=== PATIENT | female | born 1985 | race Caucasian/White ===

== ENCOUNTER → 2016-12-30 | Emergency (ER) | payer SELFPAY ==
[~2016-12-30] MED LIST: ACETAMINOPHEN/CAFFEINE/BUTALBITAL 1 TAB ONE; ACETAMINOPHEN/CAFFEINE/BUTALBITAL 1 TAB PO ONE; MAGNESIUM CITRATE 300 ML BOTTLE ONE; MAGNESIUM CITRATE 300 ML BOTTLE PO ONE; ONDANSETRON 4 MG/2 ML VIAL IVPUSH ONE; ONDANSETRON 4 MG/2 ML VIAL ONE; SODIUM CHLORIDE 1,000 ML IV STA
[2016-12-30 19:54] VITALS: BP 118/82; PULSE 76; TEMP 98.1; BMI 31.6
[2016-12-30 21:07] LABS: URINE APPEARANCE CLEAR; URINE BILIRUBIN NEGATIVE (NEGATIVE); URINE BLOOD NEGATIVE (NEGATIVE); URINE COLOR LTYELLOW; URINE GLUCOSE (UA) NEGATIVE (NEGATIVE); URINE KETONE NEGATIVE (NEGATIVE); URINE NITRITE NEGATIVE (NEGATIVE); URINE PROTEIN NEGATIVE (NEGATIVE); URINE UROBILINOGEN 4.0 E.U/dl E.U./dl (0.2-1.0)
[2016-12-30 21:11] LABS: URINE LEUK ESTERASE TRACE (NEGATIVE)
[2016-12-30 21:13] LABS: URINE RBC 1 /hpf (0-3); URINE WBC 4 /hpf (3-5)
[2016-12-30 21:18] LABS: BASOPHIL 0.5 % (0-2.0); EOSINOPHIL 1.3 % (0-4.5); MCH 31.6 pg (25.7-33.7); MCHC 34.1 g/dl (32.0-36.0); MEAN CELL VOLUME 92.8 fl (80-96); MEAN PLT VOLUME 10.9 fl (7.5-11.1); NEUTROPHILS 67.8 % (42.8-82.8); PLATELET COUNT 252 K/MM3 (134-434); RDW 12.1 % (11.6-15.6); WHITE BLOOD COUNT 8.9 K/mm3 (4.0-10.0)
[2016-12-30 21:49] LABS: ALK PHOS 80 U/L (45-117); AMYLASE 44 U/L (25-115); ANION GAP 12 (8-16); BILIRUBIN,TOTAL 0.6 mg/dL (0.2-1.0); CALCIUM 9.1 mg/dL (8.5-10.1); CO2 28 mmol/L (21-32); CREATININE 0.9 mg/dL (0.55-1.02); GLUCOSE,RANDOM 86 mg/dL (74-106); SGOT/AST 16 U/L (15-37); SGPT/ALT 19 U/L (12-78); TOT PROT 7.8 g/dl (6.4-8.2)
--- NOTE | 2016-12-30 21:54 | PDOC ---
*Physical Exam - Vital Signs Last Vital Signs Temp Pulse Resp BP Pulse Ox 98.1 F 76 18 118/82 97 12/30/16 19:51 12/30/16 19:51 12/30/16 19:51 12/30/16 19:51 12/30/16 19:51 ED Treatment Course - LABORATORY CBC & Chemistry Diagram: 12/30/16 21:00 12/30/16 21:00 - ADDITIONAL ORDERS Additional order review: Laboratory Results 12/30/16 12/30/16 21:00 20:55 Sodium 139 Potassium 4.2 Chloride 99 Carbon Dioxide 28 Anion Gap 12 BUN 19 H D Creatinine 0.9 D Creat Clearance w eGFR > 60 Random Glucose 86 Calcium 9.1 Total Bilirubin 0.6 AST 16 ALT 19 Alkaline Phosphatase 80 Total Protein 7.8 Albumin 4.0 Total Amylase 44 Lipase 85 Urine Color Ltyellow Urine Appearance Clear Urine pH 6.0 Ur Specific [place] 1.018 Urine Protein Negative Urine Glucose (UA) Negative Urine Ketones Negative Urine Blood Negative Urine Nitrite Negative Urine Bilirubin Negative Urine Urobilinogen 4.0 e.u/dl H Ur Leukocyte Esterase Trace H Urine RBC 1 Urine WBC 4 Ur Epithelial Cells Rare Urine HCG, Qual Negative 12/30/16 21:00 RBC 4.76 MCV 92.8 MCHC 34.1 RDW 12.1 MPV 10.9 Neutrophils % 67.8 Lymphocytes % 21.9 D Monocytes % 8.5 Eosinophils % 1.3 Basophils % 0.5 - Medications Given in the ED: ED Medications Discontinued Medications Generic Name Dose Route Start Last Admin Trade Name Freq PRN Reason Stop Dose Admin Sodium Chloride 1,000 mls @ 1,000 mls/hr 12/30/16 20:25 12/30/16 21:38 Normal Saline - IV 12/30/16 21:24 1,000 mls/hr ASDIR STA Administration Ondansetron HCl 4 mg 12/30/16 20:25 12/30/16 21:39 Zofran Injection IVPUSH 12/30/16 20:26 4 mg ONCE ONE Administration Medical Decision Making - Medical Decision Making 12/30/16 21:54 Pt seen by the Advanced Practice Provider under my direct supervision HENRIK Castano Ancillary studies reviewed I agree with plan as outlined by the Advanced Practice Provider *DC/Admit/Observation/Transfer Diagnosis at time of Disposition: Headache, Abdominal pain - Prescriptions Prescriptions: Naproxen [Naprosyn -] 500 mg PO BID #20 tablet Oxycodone HCl/Acetaminophen [Percocet 5-325 mg Tablet] 1 tab PO Q6H PRN #20 tablet MDD 4 tab PRN Reason: Severe Pain - Referrals Referrals: Julio Bahena MD [Staff Physician] - - Patient Instructions Printed Discharge Instructions: DI for Vomiting -- Adult Additional Instructions: FOLLOW UP WITH DR. BAHENA OFFICE. CALL TO SCHEDULE APPOINTMENT. ALSO, FOLLOW UP WITH YOUR PRIMARY CARE PROVIDER NEEDED AT [address] [place] [address], DRINK ALCOHOL, OR OPERATE HEAVY MACHINERY WHILE TAKING PERCOCET. DRINK PLENTY WATER. Print Language: ZAMBIAN - Post Discharge Activity Work/School Note: Back to Work
--- NOTE | 2016-12-30 22:42 | PDOC ---
History of Present Illness - General Chief Complaint: Nausea/Vomiting Stated Complaint: PAIN Time Seen by Provider: 12/30/16 20:11 History Source: Patient Exam Limitations: No Limitations - History of Present Illness Travel History: No Initial Comments: 12/30/16 21:31 31yo Female patient presents to ED c/o h/a x 3 days w/ abd pain, and vomiting which began today. Patient states she usually gets h/a and has been taking Excedrin for migraines which help pain. However, patient reports not having a bowel movement x 1 week and usually has them every 2 days. She denies any other complaints at this time. LNMP: 3-. Past History - Travel Traveled outside of the country in the last 30 days: No Close contact w/someone who was outside of country & ill: No - Past Medical History Allergies/Adverse Reactions: Allergies Allergy/AdvReac Type Severity Reaction Status Date / Time montelukast sodium Allergy Verified 10/05/16 07:15 [From [facility]] Home Medications: Ambulatory Orders Albuterol Sulfate Inhaler - [Ventolin HFA Inhaler -] 1 - 2 inh PO Q4H PRN #1 inhaler 10/05/16 Prednisone [Deltasone -] 40 mg PO DAILY #8 tablet 10/05/16 Acetaminophen/Caffeine/Butalb [Fioricet -] 1 tab PO Q6H PRN #20 tablet MDD 4 tabs 12/31/16 Naproxen [Naprosyn -] 500 mg PO BID #20 tablet 12/31/16 Oxycodone HCl/Acetaminophen [Percocet 5-325 mg Tablet] 1 tab PO Q6H PRN #20 tablet MDD 4 tab 12/31/16 Asthma: Yes - Reproductive History (#): 4 Para: 1 Therapeutic (s) & number: Yes (1) Spontaneous : 1 - Immunization History Immunization Up to Date: Yes - Psycho/Social/Smoking Cessation Hx Anxiety: No Suicidal Ideation: No Smoking Status: No Smoking History: Never smoked Have you smoked in the past 12 months: No Number of Cigarettes Smoked Daily: 0 Cigars Per Day: 0 Information on smoking cessation initiated: No Hx Alcohol Use: No Drug/Substance Use Hx: No Substance Use Type: None Hx Substance Use Treatment: No Abd/GI Specific PMHX - Complaint Specific PMHX Colitis: No Diverticulitis: No Gall Bladder Disease: No GERD: No Hepatitis: No Irritable Bowel Synd (IBS): No Pancreatitis: No GI Ulcer Disease: No Review of Systems - Review of Systems Able to Perform ROS?: Yes Is the patient limited Northern Irish proficient: No Constitutional: No: Chills, Fever Respiratory: No: Stridor, Wheezing, Productive cough Cardiac (ROS): No: Chest Pain, Lightheadedness, Palpitations, Syncope, Chest Tightness ABD/GI: Yes: Constipated, Nausea, Vomiting, Other (Abdominal Pain-Generalized.) . No: Diarrhea, Poor Appetite, Poor Fluid Intake : No: Dysuria, Discharge, Flank Pain, Hematuria Musculoskeletal: No: Back Pain All Other Systems: Reviewed and Negative *Physical Exam - Vital Signs Last Vital Signs Temp Pulse Resp BP Pulse Ox 98.1 F 76 18 118/82 97 12/30/16 19:51 12/30/16 19:51 12/30/16 19:51 12/30/16 19:51 12/30/16 19:51 - Physical Exam General Appearance: Yes: Nourished, Appropriately Dressed, Mild Distress. No: Apparent Distress, Moderate Distress, Severe Distress HEENT: positive: EOMI, MICHAEL, Normal ENT Inspection, Normal Voice, Symmetrical, TMs Normal, Pharynx Normal Neck: positive: Trachea midline, Normal Thyroid, Supple. negative: Lymphadenopathy (R), Lymphadenopathy (L) Respiratory/Chest: positive: Lungs Clear, Normal Breath Sounds. negative: Respiratory Distress, Accessory Muscle Use, Labored Respiration, Rapid RR, Stridor, Wheezing Cardiovascular: positive: Regular Rhythm, Regular Rate, JVD. negative: Edema Gastrointestinal/Abdominal: positive: Normal Bowel Sounds, Soft, Tenderness ( Generalized abdominal). negative: Distended, Guarding, Rebound Musculoskeletal: positive: Normal Inspection. negative: CVA Tenderness Extremity: positive: Normal Capillary Refill, Normal Inspection, Normal Range of Motion Integumentary: positive: Normal Color, Dry, Warm Neurologic: positive: soccer commentator II-XII NML intact, Fully Oriented, Alert, Normal Mood/ Affect, Normal Response, Motor Strength 5/5 ED Treatment Course - LABORATORY CBC & Chemistry Diagram: 12/30/16 21:00 12/30/16 21:00 - ADDITIONAL ORDERS Additional order review: Laboratory Results 12/30/16 12/30/16 21:00 20:55 Sodium 139 Potassium 4.2 Chloride 99 Carbon Dioxide 28 Anion Gap 12 BUN 19 H D Creatinine 0.9 D Creat Clearance w eGFR > 60 Random Glucose 86 Calcium 9.1 Total Bilirubin 0.6 AST 16 ALT 19 Alkaline Phosphatase 80 Total Protein 7.8 Albumin 4.0 Total Amylase 44 Lipase 85 Urine Color Ltyellow Urine Appearance Clear Urine pH 6.0 Ur Specific [place] 1.018 Urine Protein Negative Urine Glucose (UA) Negative Urine Ketones Negative Urine Blood Negative Urine Nitrite Negative Urine Bilirubin Negative Urine Urobilinogen 4.0 e.u/dl H Ur Leukocyte Esterase Trace H Urine RBC 1 Urine WBC 4 Ur Epithelial Cells Rare Urine HCG, Qual Negative 12/30/16 21:00 RBC 4.76 MCV 92.8 MCHC 34.1 RDW 12.1 MPV 10.9 Neutrophils % 67.8 Lymphocytes % 21.9 D Monocytes % 8.5 Eosinophils % 1.3 Basophils % 0.5 - Medications Given in the ED: ED Medications Discontinued Medications Generic Name Dose Route Start Last Admin Trade Name Freq PRN Reason Stop Dose Admin Sodium Chloride 1,000 mls @ 1,000 mls/hr 12/30/16 20:25 12/30/16 21:38 Normal Saline - IV 12/30/16 21:24 1,000 mls/hr ASDIR STA Administration Ondansetron HCl 4 mg 12/30/16 20:25 12/30/16 21:39 Zofran Injection IVPUSH 12/30/16 20:26 4 mg ONCE ONE Administration *DC/Admit/Observation/Transfer Diagnosis at time of Disposition: Headache Qualifiers: Headache type: tension-type Headache chronicity pattern: episodic headache Intractability: not intractable Qualified Code(s): G44.219 - Episodic tension- type headache, not intractable Abdominal pain Qualifiers: Abdominal location: generalized Qualified Code(s): R10.84 - Generalized abdominal pain - Discharge Dispostion Disposition: HOME Condition at time of disposition: Improved Admit: No - Prescriptions Prescriptions: Naproxen [Naprosyn -] 500 mg PO BID #20 tablet Oxycodone HCl/Acetaminophen [Percocet 5-325 mg Tablet] 1 tab PO Q6H PRN #20 tablet MDD 4 tab PRN Reason: Severe Pain - Referrals Referrals: Julio Bahena MD [Staff Physician] - - Patient Instructions Printed Discharge Instructions: DI for Vomiting -- Adult Additional Instructions: FOLLOW UP WITH DR. BAHENA OFFICE. CALL TO SCHEDULE APPOINTMENT. ALSO, FOLLOW UP WITH YOUR PRIMARY CARE PROVIDER NEEDED AT [address] [place] [address]. [address], DRINK ALCOHOL, OR OPERATE HEAVY MACHINERY WHILE TAKING PERCOCET. DRINK PLENTY WATER. Print Language: KINYARWANDA - Post Discharge Activity Work/School Note: Back to Work
== END | disposition short-term general hospital (02) ==
LOC: JER 19:44
PROC: 3E033GC Introduction of Other Therapeutic Substance into Peripheral Vein, Percutaneous Approach (ICD-10-PCS; principal; 2016-12-30)
PROC: 3E0337Z Introduction of Electrolytic and Water Balance Substance into Peripheral Vein, Percutaneous Approach (ICD-10-PCS; 2016-12-30)
DX: G44.219 Episodic tension-type headache, not intractable (principal); R10.84 Generalized abdominal pain; J45.909 Unspecified asthma, uncomplicated
CPT/HCPCS: 36415; 74020-TC; 80053; 81003; 81015; 82150; 83690; 84703; 85025; 99282-25

== ENCOUNTER 2017-10-25 14:47 | Emergency (ER) | payer OTHER ==
[2017-10-25 15:01] VITALS: BP 126/75; PULSE 55; TEMP 98.7; BMI 33.3
[2017-10-25] MEDS ORDERED: KETOROLAC TROMETHAMINE 60 MG/2 ML VIAL IM ONE (17:09)
--- NOTE | 2017-10-25 18:18 | PDOC ---
History of Present Illness - General Chief Complaint: Head/Neck problem Stated Complaint: LT SIDE NUMBNESS PAIN Time Seen by Provider: 10/25/17 16:17 History Source: Patient Exam Limitations: No Limitations - History of Present Illness Initial Comments: 10/25/17 18:13 32-year-old female presents to the emergency room for evaluation of intermittent left neck pain radiating to her left shoulder and producing tingling to her left hand intermittently for the past 2 years. Patient states has seen her primary care doctor which diagnosed her with nerve pain but states pain is worsened over the past year and decided to seek treatment. Patient states pain is normally relieved with Tylenol Motrin and denies weakness, chest pain, headache, or dizziness. Occurred: reports: other Severity: reports: mild Pain Location: reports: back, neck Method of Injury: Yes: unknown Associated Symptoms (Fall): denies symptoms Past History - Travel Traveled outside of the country in the last 30 days: No - Past Medical History Allergies/Adverse Reactions: Allergies Allergy/AdvReac Type Severity Reaction Status Date / Time montelukast sodium Allergy Verified 10/25/17 15:01 [From [facility]] Home Medications: Ambulatory Orders NK [No Known Home Medication] 10/25/17 Asthma: Yes COPD: No - Reproductive History (#): 4 Para: 1 Therapeutic (s) & number: Yes (1) Spontaneous : 1 - Immunization History Immunization Up to Date: Yes - Suicide/Smoking/Psychosocial Hx Smoking Status: No Smoking History: Never smoked Have you smoked in the past 12 months: No Number of Cigarettes Smoked Daily: 0 Cigars Per Day: 0 Information on smoking cessation initiated: No Hx Alcohol Use: No Drug/Substance Use Hx: No Substance Use Type: None Hx Substance Use Treatment: No Patient Lives Alone: No Lives with/in: parents Trauma Specific PMHX - Complaint Specific PMHX Back Injury: No Neck Injury: No Review of Systems - Review of Systems Able to Perform ROS?: Yes Constitutional: No: Symptoms Reported HEENTM: No: Symptoms Reported Respiratory: No: Symptoms reported Cardiac (ROS): No: Symptoms Reported ABD/GI: No: Symptoms Reported : No: Symptoms Reported Musculoskeletal: Yes: Muscle Pain, Neck Pain Integumentary: No: Symptoms Reported Neurological: No: Symptoms reported Endocrine: No: Symptoms Reported Hematologic/Lymphatic: No: Symptoms Reported *Physical Exam - Vital Signs Last Vital Signs Temp Pulse Resp BP Pulse Ox 98.7 F 55 L 18 126/75 100 10/25/17 14:58 10/25/17 14:58 10/25/17 14:58 10/25/17 14:58 10/25/17 14:58 - Physical Exam General Appearance: Yes: Nourished, Appropriately Dressed. No: Apparent Distress Neck: positive: Tender (left trapezius), Normal Thyroid. negative: Supple, Decreased range of motion Respiratory/Chest: positive: Lungs Clear, Normal Breath Sounds. negative: Respiratory Distress, Accessory Muscle Use Cardiovascular: positive: Regular Rhythm, Regular Rate. negative: Murmur Musculoskeletal: positive: Muscle Spasm (left trapezius) ED Treatment Course - ADDITIONAL ORDERS Additional order review: Laboratory Results 10/25/17 17:05 Urine HCG, Qual Negative - RADIOLOGY Radiology Studies Ordered: Category Date Time Status SPINE-CERVICAL [RAD] Stat Radiology 10/25/17 17:09 Completed - Medications Given in the ED: ED Medications Discontinued Medications Generic Name Dose Route Start Last Admin Trade Name Freq PRN Reason Stop Dose Admin Ketorolac Tromethamine 60 mg 10/25/17 17:09 10/25/17 18:10 Toradol Injection - IM 10/25/17 17:10 60 mg ONCE ONE Administration Medical Decision Making - Medical Decision Making 10/25/17 18:20 Patient with left neck pain radiating to her left shoulder than left arm. Patient on exam appears, muscle spasm of the left trapezius. Patient did state posterior neck pain but not reproducible on exam. Patient was ordered for cervical spine x-ray an injection of Toradol. 10/25/17 18:22 X-ray of the cervical spine shows straightening of the cervical spine likely due to muscle spasm. Patient be discharged home with Percocet and told to follow -up with her primary care physician. *DC/Admit/Observation/Transfer Diagnosis at time of Disposition: Neck muscle spasm - Discharge Dispostion Disposition: HOME Condition at time of disposition: Good - Referrals - Patient Instructions Printed Discharge Instructions: DI for Back Spasm Additional Instructions: At this time your x-ray shows spasm of the neck which may be relieved with rest , ice and antispasmodic such as Percocet. I also do recommend follow-up with her primary care physician to discuss today's visit. - Post Discharge Activity
== END 2017-10-25 18:55 | disposition home or self-care (01) ==
LOC: JERFT 14:47
PROC: 3E0233Z Introduction of Anti-inflammatory into Muscle, Percutaneous Approach (ICD-10-PCS; principal; 2017-10-25)
DX: M62.838 Other muscle spasm (principal)
CPT/HCPCS: 72050-TC; 84703; 96372; 99281-25

== ENCOUNTER 2018-03-21 11:38 | Emergency (ER) | payer OTHER ==
[2018-03-21 11:43] VITALS: BP 147/85; PULSE 77; TEMP 98.2; BMI 33.6
--- NOTE | 2018-03-21 11:57 | PDOC ---
History of Present Illness - General History Source: Patient Exam Limitations: No Limitations - History of Present Illness Initial Comments: 03/21/18 12:25 The patient is a A3 32 year old female with a significant past medical history of ovarian cysts and asthma who presents to the emergency department for evaluation of right sided lower abdominal pain. The patient reports severe right sided lower abdominal pain since yesterday. The patient describes the pain as sharp, constant, radiating to the right back, and sporadically escalating to a 9/10 in severity. She reports associated symptoms of nausea, NBNB emesis, subjective fever, and cramping. The patient notes she this pain is similar to the pain she felt during her recent miscarriage. The patient's LMP was in January. The patient denies chest pain, shortness of breath, chills, diarrhea, constipation, vaginal bleeding, abnormal discharges, dysuria, frequency, urgency , and hematuria. Allergies: Montelukast sodium Past surgical history: Patient denies. Social history: No reported cigarette, alcohol, or drug use. <Elvi Beckham - Last Filed: 03/21/18 15:50> <Reinier Kincaid - Last Filed: 03/21/18 15:56> - General Chief Complaint: Pain Stated Complaint: ABD, BACK PAIN Time Seen by Provider: 03/21/18 11:52 Past History <Elvi Beckham - Last Filed: 03/21/18 15:50> - Past Medical History Asthma: Yes COPD: No - Reproductive History (#): 4 Para: 1 Therapeutic (s) & number: Yes (1) Spontaneous : 1 - Immunization History Immunization Up to Date: Yes - Suicide/Smoking/Psychosocial Hx Smoking Status: No Smoking History: Never smoked Have you smoked in the past 12 months: No Number of Cigarettes Smoked Daily: 0 Cigars Per Day: 0 Hx Alcohol Use: No Drug/Substance Use Hx: No Substance Use Type: None Hx Substance Use Treatment: No <Reinier Kincaid - Last Filed: 03/21/18 15:56> - Past Medical History Allergies/Adverse Reactions: Allergies Allergy/AdvReac Type Severity Reaction Status Date / Time montelukast sodium Allergy Verified 03/21/18 11:41 [From [facility]] Home Medications: Ambulatory Orders NK [No Known Home Medication] 03/21/18 Review of Systems - Review of Systems Constitutional: No: Chills, Fever Respiratory: No: Cough, Shortness of Breath Cardiac (ROS): No: Chest Pain ABD/GI: Yes: Nausea. No: Constipated, Diarrhea, Vomiting : Yes: See HPI. No: Dysuria, Frequency All Other Systems: Reviewed and Negative <Reinier Kincaid - Last Filed: 03/21/18 15:56> *Physical Exam - Vital Signs Last Vital Signs Temp Pulse Resp BP Pulse Ox 98.2 F 77 18 147/85 99 03/21/18 11:41 03/21/18 11:41 03/21/18 11:41 03/21/18 11:41 03/21/18 11:41 - Physical Exam Comments: GENERAL: The patient is awake, alert, and fully oriented, in no acute distress. HEAD: Normal with no signs of trauma. EYES: Pupils equal, round and reactive to light, extraocular movements intact, sclera anicteric, conjunctiva clear with no pallor. ENT: Ears normal, nares patent, oropharynx clear without exudates. Moist mucous membranes. NECK: Normal range of motion, supple without lymphadenopathy, JVD, or masses. LUNGS: Breath sounds equal, clear to auscultation bilaterally. No wheeze/ crackles. HEART: Regular rate and rhythm, normal S1 and S2 without murmur or rub. ABDOMEN: (+)Referred pain to right pelvis with diffuse palpation. (+)Tenderness on palpation to right pelvis, with no guarding. Soft, nondistended. MUSCULOSKELETAL: No CVA tenderness. EXTREMITIES: Normal range of motion, no edema. No clubbing or cyanosis. No cords, erythema, or tenderness. NEUROLOGICAL: Cranial nerves II through XII grossly intact. Normal speech, normal gait. PSYCH: Normal mood, normal affect. SKIN: Warm, Dry, normal turgor, no rashes or lesions noted. <Elvi Beckham - Last Filed: 03/21/18 15:50> - Vital Signs Last Vital Signs Temp Pulse Resp BP Pulse Ox 98.2 F 77 18 147/85 99 03/21/18 11:41 03/21/18 11:41 03/21/18 11:41 03/21/18 11:41 03/21/18 11:41 <Reinier Kincaid - Last Filed: 03/21/18 15:56> ED Treatment Course - LABORATORY CBC & Chemistry Diagram: 03/21/18 12:35 03/21/18 12:35 <Elvi Beckham - Last Filed: 03/21/18 15:50> - LABORATORY CBC & Chemistry Diagram: 03/21/18 12:35 03/21/18 12:35 <CodiReinier - Last Filed: 03/21/18 15:56> Medical Decision Making - Medical Decision Making 03/21/18 15:50 Transvaginal Ultrasound Impression: Bilateral ovarian follicles with no sonographic evidence of torsion. IUD in the lower uterine segment. <BhavaniElvi - Last Filed: 03/21/18 15:50> - Medical Decision Making 03/21/18 12:16 A portion of this note was documented by scribe services under my direction. I have reviewed the details of the note, within reason, and agree with the documentation with the following case summary and management plan written by me. 32-year-old female with history of first trimester miscarriage and two VTOP with LMP in January presents with gradual onset of right pelvic pain radiating to her right back since last night, waxing and waning in severity but otherwise constant, no associated vaginal discharge or bleeding. No urinary complaints, no GI complaints. Pain is similar to past miscarriage. Does not know if she is . Vital signs stable Seated in stretcher comfortably No jaundice or pallor Abdomen is soft and nondistended, tender without guarding or rebound in the right pelvis. No CVA tenderness. Bedside ultrasound per resident. 32-year-old female with right pelvic pain since last night, hemodynamically stable. Possible , rule out ectopic. 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 Stat bedside ultrasound to rule out ectopic Labs, urinalysis Reassess 03/21/18 13:57 labs normal, no leukocytosis. UA clear, urine negative. EVUS to evaluate for ovarian cyst/torsion. Reassess 03/21/18 15:54 Ultrasound shows no acute abnormalities. Patient is ambulating, hungry, and pain slightly improved. Repeat abdominal exam is soft/nontender/nondistended, there is no tenderness at McBurney's point and no CVA tenderness. No clinical suspicion for appendicitis, question whether this is early menstrual symptoms, not consistent with PID. We'll give Toradol for pain, agrees with discharge plan and [facility] [employer] follow-up, understands return criteria. <Reinier Kincaid - Last Filed: 03/21/18 15:56> *DC/Admit/Observation/Transfer - Attestations Scribe Attestion: Documentation prepared by Elvi Beckham, acting as medical file clerk for Reinier Kincaid MD. <Elvi Beckham - Last Filed: 03/21/18 15:50> <Reinier Kincaid - Last Filed: 03/21/18 15:56> Diagnosis at time of Disposition: Pelvic pain in female - Discharge Dispostion Disposition: HOME Condition at time of disposition: Improved - Referrals Referrals: Benji Hanks MD [Staff Physician] - - Patient Instructions Printed Discharge Instructions: DI for Pelvic Pain Additional Instructions: Activity as tolerated. Stay hydrated. Tylenol 1000 mg every 8 hours and/or ibuprofen 600 mg every 8 hours as needed for pain. Blood tests, a urine test, and an ultrasound showed no acute abnormalities. There is no evidence of infection at this time, and the symptoms might be due to early menstrual pains. Follow up with your primary doctor and [facility] [employer] as soon as possible regarding today's emergency department visit. Return to the emergency department for any new or concerning symptoms, particularly persistent or worsening pain, severe cramping or bleeding, fevers or chills, vomiting or diarrhea, difficulty urinating.
[2018-03-21 13:03] LABS: BASO % 0.5 % (0-2.0); EOS % 1.5 % (0-4.5); HEMOGLOBIN 14.2 GM/dL (10.7-15.3); LYMPH % 19.6 % (8-40); MCH 31.5 pg (25.7-33.7); MCHC 33.7 g/dl (32.0-36.0); MEAN CELL VOLUME 93.4 fl (80-96); MEAN PLT VOLUME 10.9 fl (7.5-11.1); MONO % 7.4 % (3.8-10.2); PLATELET COUNT 248 K/MM3 (134-434); RDW 12.6 % (11.6-15.6); WHITE BLOOD COUNT 7.1 K/mm3 (4.0-10.0)
[2018-03-21 13:16] LABS: URINE APPEARANCE CLEAR; URINE BILIRUBIN NEGATIVE (<2.0 mg/dL); URINE COLOR YELLOW; URINE GLUCOSE (UA) NEGATIVE (NEGATIVE); URINE KETONE NEGATIVE (NEGATIVE); URINE LEUK ESTERASE NEGATIVE (NEGATIVE); URINE NITRITE NEGATIVE (NEGATIVE); URINE PROTEIN NEGATIVE (NEGATIVE)
[2018-03-21 13:27] LABS: ALBUMIN 3.7 g/dl (3.4-5.0); ANION GAP 8 (8-16); BLOOD UREA NITROGEN 8 mg/dL (7-18); CALCIUM 8.9 mg/dL (8.5-10.1); CHLORIDE 106 mmol/L (98-107); CO2 26 mmol/L (21-32); GLUCOSE,RANDOM 86 mg/dL (74-106); LIPASE 83 U/L (73-393); SODIUM 140 mmol/L (136-145)
[2018-03-21 13:31] LABS: ALK PHOS 64 U/L (45-117); BILIRUBIN,TOTAL 0.3 mg/dL (0.2-1.0); CREATININE 0.6 mg/dL (0.55-1.02); SGOT/AST 13 U/L (15-37); SGPT/ALT 18 U/L (12-78); TOT PROT 7.2 g/dl (6.4-8.2)
[2018-03-21] MEDS ORDERED: KETOROLAC TROMETHAMINE 30 MG/1 ML VIAL IVPUSH ONE (15:46)
[2018-03-21] MEDS ORDERED: KETOROLAC TROMETHAMINE 60 MG/2 ML VIAL IM ONE (15:53)
[2018-03-21] MEDS ORDERED: KETOROLAC TROMETHAMINE 60 MG/2 ML VIAL ONE (16:00)
== END 2018-03-21 16:07 | disposition home or self-care (01) ==
LOC: JER 11:38
PROC: 3E0233Z Introduction of Anti-inflammatory into Muscle, Percutaneous Approach (ICD-10-PCS; principal; 2018-03-21)
DX: R10.2 Pelvic and perineal pain (principal); Z87.42 Personal history of other diseases of the female genital tract
CPT/HCPCS: 36415; 76830-TC; 80053; 81003; 83690; 84703; 85025; 96372; 99283-25

== ENCOUNTER 2018-08-05 14:07 | Emergency (ER) | payer SELFPAY ==
[2018-08-05 14:21] VITALS: BP 124/71; PULSE 72; TEMP 98.1; BMI 31.6
[2018-08-05] MEDS ORDERED: IBUPROFEN 400 MG TABLET (FP) PO ONE ×2 (14:38→14:44)
--- NOTE | 2018-08-05 14:43 | PDOC ---
History of Present Illness - General Chief Complaint: Ear Problem Stated Complaint: EAR PAIN Time Seen by Provider: 08/05/18 14:23 History Source: Patient - History of Present Illness Timing/Duration: reports: yesterday Associated Symptoms: reports: earache. denies: cough, facial pain, fever/chills , nasal congestion, nasal drainage Past History - Past Medical History Allergies/Adverse Reactions: Allergies Allergy/AdvReac Type Severity Reaction Status Date / Time montelukast sodium Allergy Verified 03/21/18 11:41 [From [facility]] Home Medications: Ambulatory Orders Amoxicillin - [Amoxicillin 875mg Tablet -] 875 mg PO BID #14 tab 08/05/18 Ciprofloxacin HCl/Dexameth [Ciprodex Otic Suspension] 4 drop BID #1 bottle Ibuprofen [Motrin -] 800 mg PO Q6H #30 tablet 08/05/18 Asthma: Yes COPD: No - Reproductive History (#): 4 Para: 1 Cervical CA: No Dysfunctional Uterine Bleeding: No Ectopic : No Endometrial CA: No Polycystic Ovaries: No Therapeutic (s) & number: Yes (1) Tubal Ligation: No Spontaneous : 1 - Immunization History Immunization Up to Date: Yes - Suicide/Smoking/Psychosocial Hx Smoking Status: No Smoking History: Never smoked Have you smoked in the past 12 months: No Number of Cigarettes Smoked Daily: 0 Cigars Per Day: 0 Hx Alcohol Use: No Drug/Substance Use Hx: No Substance Use Type: None Hx Substance Use Treatment: No Respiratory Specific PMHX - Complaint Specific PMHX Angina: No Bronchitis: No Pneumonia: No Pulmonary Embolus: No TB (Tuberculosis): No Review of Systems - Review of Systems Constitutional: No: Chills, Fever HEENTM: Yes: Ear Pain. No: Throat Pain Respiratory: No: Cough *Physical Exam - Vital Signs Last Vital Signs Temp Pulse Resp BP Pulse Ox 98.1 F 72 18 124/71 99 08/05/18 14:19 08/05/18 14:19 08/05/18 14:19 08/05/18 14:19 08/05/18 14:19 - Physical Exam General Appearance: Yes: Appropriately Dressed, Mild Distress HEENT: positive: Normal Voice, Other (L canal edema and purulent discharge, unable to see L TM, no swelling over mastoid). negative: Scleral Icterus (R), Scleral Icterus (L) Neck: positive: Supple. negative: Lymphadenopathy (R), Lymphadenopathy (L) Respiratory/Chest: negative: Respiratory Distress Integumentary: positive: Dry, Warm Neurologic: positive: Fully Oriented, Alert, Normal Mood/Affect Medical Decision Making - Medical Decision Making 08/05/18 14:44 33-year-old female, no significant history here with severe L ear pain since yesterday. No otorrhea, fever, chills, sore throat or cough. No recent trauma See exam Otitis externa -dc w/ ciprodex and amox -may need ear wick placed due to some canal swelling -ENT f/u given *DC/Admit/Observation/Transfer Diagnosis at time of Disposition: Otitis externa Qualifiers: Otitis externa type: unspecified type Chronicity: acute Laterality: left Qualified Code(s): H60.502 - Unspecified acute noninfective otitis externa, left ear - Discharge Dispostion Disposition: HOME Condition at time of disposition: Good - Prescriptions Prescriptions: Amoxicillin - [Amoxicillin 875mg Tablet -] 875 mg PO BID #14 tab Ciprofloxacin HCl/Dexameth [Ciprodex Otic Suspension] 4 drop BID #1 bottle Ibuprofen [Motrin -] 800 mg PO Q6H #30 tablet - Referrals Referrals: Jamison Florez [Primary Care Provider] - Chance Oliveira MD [Staff Physician] - - Patient Instructions Printed Discharge Instructions: DI for Otitis Externa Additional Instructions: Take medications as directed Please follow up with Dr Oliveira next week if symptoms are persistent or worsening as you may need an ear wick place in canal due to some swelling - Post Discharge Activity
== END 2018-08-05 14:56 | disposition home or self-care (01) ==
LOC: JERFT 14:07
DX: H60.502 Unspecified acute noninfective otitis externa, left ear (principal)
CPT/HCPCS: 99281-25

== ENCOUNTER 2018-12-19 08:06 | Emergency (ER) | payer OTHER ==
[2018-12-19 08:11] VITALS: BP 118/71; PULSE 93; TEMP 99.2; BMI 33.3
--- NOTE | 2018-12-19 08:19 | PDOC ---
History of Present Illness - General Chief Complaint: Migraine Headache Stated Complaint: MIRGAINES/LT EAR PAIN Time Seen by Provider: 12/19/18 08:17 History Source: Patient Exam Limitations: No Limitations - History of Present Illness Initial Comments: 12/19/18 08:50 The patient is a 33-year-old female past medical history of asthma, who presents to the ER with left ear pain for 2 days. Patient states that it hurts to touch the outside of her ear. She also admits to associated headaches. Denies fevers, chills, dizziness, lightheadedness, nausea and vomiting. Past History - Travel Traveled outside of the country in the last 30 days: No Close contact w/someone who was outside of country & ill: No - Past Medical History Allergies/Adverse Reactions: Allergies Allergy/AdvReac Type Severity Reaction Status Date / Time montelukast sodium Allergy Verified 03/21/18 11:41 [From [facility]] Home Medications: Ambulatory Orders Amoxicillin - [Amoxicillin 500mg Capsule -] 500 mg PO BID #14 capsule 12/19/18 Ofloxacin Otic [Floxin Otic -] 10 drop OT BID #200 drops 12/19/18 Asthma: Yes COPD: No - Reproductive History (#): 4 Para: 1 Cervical CA: No Dysfunctional Uterine Bleeding: No Ectopic : No Endometrial CA: No Polycystic Ovaries: No Therapeutic (s) & number: Yes (1) Tubal Ligation: No Spontaneous : 1 - Immunization History Immunization Up to Date: Yes - Suicide/Smoking/Psychosocial Hx Smoking Status: No Smoking History: Never smoked Have you smoked in the past 12 months: No Number of Cigarettes Smoked Daily: 0 Cigars Per Day: 0 Hx Alcohol Use: No Drug/Substance Use Hx: No Substance Use Type: None Hx Substance Use Treatment: No Review of Systems - Review of Systems Able to Perform ROS?: Yes Comments:: 12/19/18 08:18 CONSTITUTIONAL: Absent: fever, chills, diaphoresis, generalized weakness, malaise, loss of appetite HEENT: Present: L ear pain Absent: rhinorrhea, nasal congestion, throat pain, throat swelling, difficulty swallowing, mouth swelling, ear pain, eye pain, visual Changes CARDIOVASCULAR: Absent: chest pain, loss of consciousness, palpitations, irregular heart rate, peripheral edema RESPIRATORY: Absent: cough, shortness of breath, dyspnea with exertion, orthopnea, wheezing, stridor, hemoptysis GASTROINTESTINAL: Absent: abdominal pain, abdominal distension, nausea, vomiting, diarrhea, constipation, melena, hematochezia GENITOURINARY: Absent: dysuria, frequency, urgency, hesitancy, hematuria, flank pain, genital pain MUSCULOSKELETAL: Absent: myalgia, arthralgia, joint swelling SKIN: Absent: rash, itching, pallor HEMATOLOGIC/IMMUNOLOGIC: Absent: easy bleeding, easy bruising, lymphadenopathy, frequent infections ENDOCRINE: Absent: unexplained weight gain, unexplained weight loss, heat intolerance, cold intolerance NEUROLOGIC: Present: headache Absent: headache, focal weakness or paresthesias, dizziness, unsteady gait, seizure, mental status changes, bladder or bowel incontinence PSYCHIATRIC: Absent: anxiety, depression, suicidal or homicidal ideation, hallucinations. Is the patient limited Khmer proficient: No *Physical Exam - Vital Signs Last Vital Signs Temp Pulse Resp BP Pulse Ox 99.2 F 93 H 16 118/71 100 12/19/18 08:10 12/19/18 08:10 12/19/18 08:10 12/19/18 08:10 12/19/18 08:10 - Physical Exam Comments: 12/19/18 08:19 GENERAL: Well developed, well nourished. Awake and alert. No acute distress. HEENT: Normocephalic, atraumatic. PERRLA, EOMI. No conjunctival pallor. Sclera are non- icteric. Moist mucous membranes. Oropharynx is clear. L ear canal mildly edematous. No otorrhea. (+) TTP of the L tragus and L pinna. L TM appears clear. R TM and ear canal are normal. NECK: Supple. Full ROM. No JVD. Carotid pulses 2+ and symmetric, without bruits. No thyromegaly. No lymphadenopathy. CARDIOVASCULAR: Regular rate and rhythm. No murmurs, rubs, or gallops. Distal pulses are 2+ and symmetric. PULMONARY: No evidence of respiratory distress. Lungs clear to auscultation bilaterally. No wheezing, rales or rhonchi. ABDOMINAL: Soft. Non-tender. Non-distended. No rebound or guarding. No organomegaly. Normoactive bowel sounds. MUSCULOSKELETAL Normal range of motion at all joints. No bony deformities or tenderness. No CVA tenderness. EXTREMITIES: No cyanosis. No clubbing. No edema. No calf tenderness. SKIN: Warm and dry. Normal capillary refill. No rashes. No jaundice. NEUROLOGICAL: Alert, awake, appropriate. Cranial nerves 2-12 intact. No deficits to light touch and temperature in face, upper extremities and lower extremities. No motor deficits in the in face, upper extremities and lower extremities. Normoreflexic in the upper and lower extremities. Normal speech. Toes are down- going bilaterally. Gait is normal without ataxia. PSYCHIATRIC: Cooperative. Good eye contact. Appropriate mood and affect. 12/19/18 08:50 Moderate Sedation - Procedure Monitoring Vital Signs: Procedure Monitoring Vital Signs Temperature 99.2 F 12/19/18 08:10 Pulse Rate 93 H 12/19/18 08:10 Respiratory Rate 16 12/19/18 08:10 Blood Pressure 118/71 12/19/18 08:10 O2 Sat by Pulse Oximetry (%) 100 12/19/18 08:10 Medical Decision Making - Medical Decision Making 12/19/18 08:53 Pt is a 33 y/o F who presents to the ED for two days of ear pain and headache Most likely otitis externa given pain to tragus and pinna No ttp of the mastoid Motrin given for pain control DC home with ear drops and amoxicillin ENT follow up given I discussed the physical exam findings, ancillary test results and final diagnoses with the patient. I answered all of the patient's questions. The patient was satisfied with the care received and felt comfortable with the discharge plan and treatment plan. The Patient agrees to follow up with the primary care physician/specialist within 24-72 hours. Return precautions were given. *DC/Admit/Observation/Transfer Diagnosis at time of Disposition: Otitis externa Qualifiers: Otitis externa type: unspecified type Chronicity: acute Laterality: left Qualified Code(s): H60.502 - Unspecified acute noninfective otitis externa, left ear - Discharge Dispostion Disposition: HOME Condition at time of disposition: Stable Decision to Admit order: No - Referrals Referrals: Jamison Florez [Primary Care Provider] - - Patient Instructions Printed Discharge Instructions: DI for Otitis Externa Additional Instructions: You have otitis externa. This is an infection of the ear canal. Please use the eardrops once a day as directed for the next 10 days to the affected ear. Please take the amoxicillin twice a day for 10 days. Do not put anything in the ear, including q-tips. Keep the ear dry. Do not go swimming for the next 2 weeks. Pat the ear dry with a towel after showering. Follow up with ENT if your symptoms are not improving in 7-10 days Return to the ED if you have worsening pain, fevers, dizziness or if you have any changes in your symptoms. ENT: Dr. Pat Ennis [address] [address] - Post Discharge Activity Forms/Work/School Notes: Back to Work
[2018-12-19] MEDS ORDERED: IBUPROFEN 400 MG TABLET (FP) PO ONE ×2 (08:46→08:48)
== END 2018-12-19 09:15 | disposition home or self-care (01) ==
LOC: JERFT 08:06
DX: H60.502 Unspecified acute noninfective otitis externa, left ear (principal)
CPT/HCPCS: 99281-25

== ENCOUNTER 2019-01-24 18:14 | Emergency (ER) | payer OTHER ==
[2019-01-24 18:20] VITALS: BP 130/83; BMI 34.9
--- NOTE | 2019-01-24 18:21 | PDOC ---
Rapid Medical Evaluation Time Seen by Provider: 01/24/19 18:16 Medical Evaluation: Allergies Allergy/AdvReac Type Severity Reaction Status Date / Time montelukast sodium Allergy Verified 03/21/18 11:41 [From [facility]] 01/24/19 18:16 I have performed a brief in-person evaluation of this patient. The patient presents with a chief complaint of: left temporal pain with sore throat Pertinent physical exam findings: uvula midline. No sublingual swelling. + trismus I have ordered the following: labs, rapid strep, urine The patient will proceed to the ED for further evaluation. Discharge Disposition - Diagnosis Headache - Referrals - Patient Instructions - Post Discharge Activity
[2019-01-24] MEDS ORDERED: KETOROLAC TROMETHAMINE 30 MG/1 ML VIAL IVPUSH ONE (18:57)
[2019-01-24] MEDS ORDERED: NEOMYCIN/POLYMYXN/HC OTIC SOLUTION 10 ML BOTTLE ONE (18:58)
[2019-01-24] MEDS ORDERED: KETOROLAC TROMETHAMINE 30 MG/1 ML VIAL ONE (18:59)
[2019-01-24] MEDS ORDERED: NEOMYCIN/POLYMYXN/HC OTIC SUSPENSION 10 ML BOTTLE AS ONE (19:17)
--- NOTE | 2019-01-24 19:23 | PDOC ---
History of Present Illness - General Chief Complaint: Headache Stated Complaint: PAIN ON LEFT SIDE OF FACE, itchy throat Time Seen by Provider: 01/24/19 18:16 History Source: Patient Exam Limitations: No Limitations - History of Present Illness Initial Comments: 01/24/19 19:21 Patient came to emergency department with complaints of severe left ear and facial pain. has suffered with same in the past approximately one month ago. Was seen here and treated with Cortisporin otic drops and a course of antibiotics with some resolved. Was seen by ENT who cleared her for any significant tympanic or canal issue. had a recurrence of pain 2 days ago but is progressively worsened to where she has exquisite pain to her left face/ ear without resolved with Excedrin. had drainage yesterday but none today from the same air. Severity: Yes: moderate, severe Associated Symptoms: reports: fever/chills, ringing in ears Past History - Travel Traveled outside of the country in the last 30 days: No Close contact w/someone who was outside of country & ill: No - Past Medical History Allergies/Adverse Reactions: Allergies Allergy/AdvReac Type Severity Reaction Status Date / Time montelukast sodium Allergy Verified 01/24/19 18:20 [From [facility]] Home Medications: Ambulatory Orders Clindamycin [Cleocin -] 300 mg PO TID #21 capsule 01/25/19 Ibuprofen 600 mg PO Q6H #30 tablet 01/25/19 Neomycin/Polymyxn/Hc [Cortisporin Otic Solution -] 5 drop Q6HPO #1 bottle Asthma: Yes COPD: No - Reproductive History (#): 4 Para: 1 Cervical CA: No Dysfunctional Uterine Bleeding: No Ectopic : No Endometrial CA: No Polycystic Ovaries: No Therapeutic (s) & number: Yes (1) Tubal Ligation: No Spontaneous : 1 - Immunization History Immunization Up to Date: Yes - Suicide/Smoking/Psychosocial Hx Smoking Status: No Smoking History: Never smoked Have you smoked in the past 12 months: No Number of Cigarettes Smoked Daily: 0 Cigars Per Day: 0 Information on smoking cessation initiated: No Hx Alcohol Use: No Drug/Substance Use Hx: No Substance Use Type: None Hx Substance Use Treatment: No Review of Systems - Review of Systems Able to Perform ROS?: Yes Is the patient limited Kazakh proficient: Yes Constitutional: Yes: Symptoms Reported, See HPI, Chills, Malaise. No: Fever HEENTM: Yes: Symptoms Reported, See HPI Respiratory: No: Symptoms reported Neurological: Yes: Symptoms reported, See HPI, Headache All Other Systems: Reviewed and Negative *Physical Exam - Vital Signs Last Vital Signs Temp Pulse Resp BP Pulse Ox 98.7 F 93 H 18 130/83 98 01/24/19 18:17 01/24/19 18:17 01/24/19 18:17 01/24/19 18:17 01/24/19 18:17 - Physical Exam General Appearance: Yes: Nourished, Appropriately Dressed, Apparent Distress, Severe Distress HEENT: positive: MICHAEL, Pharynx Normal, Nasal Congestion, Rhinorrhea, Hearing Decreased. negative: Normal ENT Inspection, TMs Normal (patient with exquisite tenderness on light touch to left or call, tragus, and mastoid bone. Has no erythema, no fluctuance however is exquisitely painful/reproduces tears. Swollen and erythematous left canal and unable to visualize TM due to the swelling. Has no obvious purulent drainage in canal. Right TM intact, clear and structures easily), Pharyngeal Erythema, Tonsillar Exudate, TM Bulging Neck: positive: Supple, Lymphadenopathy (R), Lymphadenopathy (L) Respiratory/Chest: positive: Lungs Clear, Normal Breath Sounds Musculoskeletal: positive: Normal Inspection Extremity: positive: Normal Capillary Refill, Normal Inspection, Normal Range of Motion Integumentary: positive: Dry, Warm, Pale Neurologic: positive: rf microwave engineer II-XII NML intact, Fully Oriented, Alert, Normal Mood/ Affect, Normal Response, Motor Strength 02/04 ED Treatment Course - LABORATORY CBC & Chemistry Diagram: 01/24/19 19:28 01/24/19 19:28 - RADIOLOGY Radiology Studies Ordered: Category Date Time Status HEAD CT WITHOUT CONTRAST [CT] Stat CT Scan 01/24/19 19:[address] W/O CONTRAST [CT] Stat CT Scan 01/24/19 19:16 Ordered - Medications Given in the ED: ED Medications Discontinued Medications Generic Name Dose Route Start Last Admin Trade Name Freq PRN Reason Stop Dose Admin Ketorolac Tromethamine 30 mg 01/24/19 18:57 01/24/19 19:10 Toradol Injection - IVPUSH 01/24/19 18:58 30 mg ONCE ONE Administration Medical Decision Making - Medical Decision Making 01/24/19 19:38 Patient states year pain is much relieved after 30 mg of IV Toradol. Instilled Cortisporin otic solution. Pending urine UCG we will sent for CAT scan of the temporal bones and head to rule out mastoiditis or other pathology. TIFFANY Husain given turnover for patient who she will receive pending results of CT scan *DC/Admit/Observation/Transfer Diagnosis at time of Disposition: Otitis externa Qualifiers: Otitis externa type: unspecified type Chronicity: acute Laterality: left Qualified Code(s): H60.502 - Unspecified acute noninfective otitis externa, left ear Otitis media Qualifiers: Otitis media type: unspecified Chronicity: acute Qualified Code(s): H66.90 - Otitis media, unspecified, unspecified ear - Discharge Dispostion Disposition: HOME Condition at time of disposition: Stable - Prescriptions Prescriptions: Clindamycin [Cleocin -] 300 mg PO TID #21 capsule Ibuprofen 600 mg PO Q6H #30 tablet Neomycin/Polymyxn/Hc [Cortisporin Otic Solution -] 5 drop Q6HPO #1 bottle - Referrals Referrals: Jamison Florez [Primary Care Provider] - - Patient Instructions Printed Discharge Instructions: DI for Otitis Externa, DI for Otitis Media ( Middle Ear Infection)-Child Additional Instructions: You were evaluated for your ear pain today. Please take the antibiotics and use the eardrops as directed. You may take Motrin 600 mL every 6 hours as needed for pain not to exceed 3000 mg a day. Please follow up with ENT as scheduled. Return to the ER for worsening pain, headache, nausea, dizziness or if you have any changes in your symptoms. - Post Discharge Activity Forms/Work/School Notes: Back to Work
[2019-01-24 19:36] LABS: HCG,QUALITATIVE URINE Negative
[2019-01-24 19:37] LABS: EPI CELLS 6.1 /HPF (0-5/HPF); URINE APPEARANCE CLEAR; URINE BACTERIA 338.6 /hpf (NEGATIVE); URINE BILIRUBIN NEGATIVE (NEGATIVE); URINE CASTS 1 /lpf (0-8); URINE COLOR YELLOW; URINE GLUCOSE (UA) NEGATIVE (NEGATIVE); URINE KETONE NEGATIVE (NEGATIVE); URINE LEUK ESTERASE 1+ (NEGATIVE); URINE NITRITE NEGATIVE (NEGATIVE); URINE PROTEIN NEGATIVE (NEGATIVE); URINE WBC 6 /hpf (0-5)
[2019-01-24 19:42] LABS: BASO % 0.5 % (0-2.0); EOS % 1.4 % (0-4.5); HEMATOCRIT 41.8 % (32.4-45.2); HEMOGLOBIN 14.1 GM/dL (10.7-15.3); LYMPH % 18.2 % (8-40); MCH 32.3 pg (25.7-33.7); MCHC 33.9 g/dl (32.0-36.0); MEAN CELL VOLUME 95.3 fl (80-96); MEAN PLT VOLUME 10.7 fl (7.5-11.1); MONO % 8.2 % (3.8-10.2); NEUT % 71.7 % (42.8-82.8); PLATELET COUNT 275 K/MM3 (134-434); RBC 4.38 M/mm3 (3.60-5.2); RDW 12.6 % (11.6-15.6); WHITE BLOOD COUNT 11.3 K/mm3 (4.0-10.0)
[2019-01-24 20:00] LABS: URINE RBC 11.6 /hpf (0-4)
[2019-01-24 20:32] LABS: ERYTHROCYTE SEDIMENTATION RATE 55 mm/hr (0-20)
[2019-01-24 21:18] LABS: ALBUMIN 2.6 g/dl (3.4-5.0); ALK PHOS 64 U/L (45-117); ANION GAP 13 MMOL/L (8-16); BILIRUBIN,TOTAL 0.6 mg/dL (0.2-1); BLOOD UREA NITROGEN 15 mg/dL (7-18); CHLORIDE 105 mmol/L (98-107); CO2 22 mmol/L (21-32); CREATININE 0.8 mg/dL (0.55-1.3); GLUCOSE,RANDOM 70 mg/dL (74-106); POTASSIUM 5.2 mmol/L (3.5-5.1); SGOT/AST 33 U/L (15-37); SGPT/ALT 18 U/L (13-61); SODIUM 140 mmol/L (136-145); TOT PROT 7.7 g/dl (6.4-8.2)
--- NOTE | 2019-01-24 22:16 | PDOC ---
*Physical Exam - Vital Signs Last Vital Signs Temp Pulse Resp BP Pulse Ox 98.7 F 93 H 18 130/83 98 01/24/19 18:17 01/24/19 18:17 01/24/19 18:17 01/24/19 18:17 01/24/19 18:17 - Physical Exam General Appearance: Yes: Nourished, Appropriately Dressed. No: Apparent Distress ED Treatment Course - LABORATORY CBC & Chemistry Diagram: 01/24/19 19:28 01/24/19 19:28 - ADDITIONAL ORDERS Additional order review: Laboratory Results 01/24/19 01/24/19 19:28 18:46 Sodium 140 Potassium 5.2 H Chloride 105 Carbon Dioxide 22 Anion Gap 13 BUN 15 Creatinine 0.8 Creat Clearance w eGFR 83.66 Random Glucose 70 L Calcium 9.0 Total Bilirubin 0.6 AST 33 ALT 18 Alkaline Phosphatase 64 Total Protein 7.7 Albumin 2.6 L Urine Color Yellow Urine Appearance Clear Urine pH 7.0 Ur Specific [place] 1.018 Urine Protein Negative Urine Glucose (UA) Negative Urine Ketones Negative Urine Blood Negative Urine Nitrite Negative Urine Bilirubin Negative Urine Urobilinogen 1.0 Ur Leukocyte Esterase 1+ H Urine WBC (Auto) 6 Urine RBC (Auto) 11.6 Urine Casts (Auto) 1 U Epithel Cells (Auto) 6.1 Urine Bacteria (Auto) 338.6 Urine HCG, Qual Negative 01/24/19 19:28 RBC 4.38 MCV 95.3 MCHC 33.9 RDW 12.6 MPV 10.7 Neutrophils % 71.7 Lymphocytes % 18.2 Monocytes % 8.2 Eosinophils % 1.4 Basophils % 0.5 - Medications Given in the ED: ED Medications Discontinued Medications Generic Name Dose Route Start Last Admin Trade Name Freq PRN Reason Stop Dose Admin Ketorolac Tromethamine 30 mg 01/24/19 18:57 01/24/19 19:10 Toradol Injection - IVPUSH 01/24/19 18:58 30 mg ONCE ONE Administration Neomycin/Polymyxin/Hydrocortisone 5 drop 01/24/19 19:17 01/24/19 19:51 Cortisporin Otic Suspenstion - 01/24/19 19:18 5 drop ONCE ONE Administration Medical Decision Making - Medical Decision Making 01/24/19 22:13 Pt transferred from fast track for r/o mastoiditis. Pt just returned from head CT/temporal bones CT comport oral bones, head No CT evidence of acute intracranial pathology. Findings are seen consistent with left-sided otitis externa and left-sided otitis media as discussed. There is also a small amount of fluid within the left mastoid air cells. Paranasal sinus disease as noted above No inflammation around the mastoid bones. No erosion this. Tympanic annulus Suspect otitis media/externa at this time. We'll discharge on clindamycin as patient had amoxicillin last month Discharge home with ENT follow-up. Patient received 1 dose of IV clindamycin prior discharge. I discussed the physical exam findings, ancillary test results and final diagnoses with the patient. I answered all of the patient's questions. The patient was satisfied with the care received and felt comfortable with the discharge plan and treatment plan. The Patient agrees to follow up with the primary care physician/specialist within 24-72 hours. Return precautions were given. *DC/Admit/Observation/Transfer Diagnosis at time of Disposition: Otitis externa Qualifiers: Otitis externa type: unspecified type Chronicity: acute Laterality: left Qualified Code(s): H60.502 - Unspecified acute noninfective otitis externa, left ear Otitis media Qualifiers: Otitis media type: suppurative Chronicity: acute Laterality: left Recurrence: recurrent Spontaneous tympanic membrane rupture: without spontaneous rupture Qualified Code(s): H66.005 - Acute suppurative otitis media without spontaneous rupture of ear drum, recurrent, left ear - Discharge Dispostion Disposition: HOME Condition at time of disposition: Stable Decision to Admit order: No - Prescriptions Prescriptions: Clindamycin [Cleocin -] 300 mg PO TID #21 capsule Ibuprofen 600 mg PO Q6H #30 tablet Neomycin/Polymyxn/Hc [Cortisporin Otic Solution -] 5 drop Q6HPO #1 bottle - Referrals Referrals: Jamison Florez [Primary Care Provider] - - Patient Instructions Printed Discharge Instructions: DI for Otitis Externa, DI for Otitis Media ( Middle Ear Infection)-Child Additional Instructions: You were evaluated for your ear pain today. Please take the antibiotics and use the eardrops as directed. You may take Motrin 600 mL every 6 hours as needed for pain not to exceed 3000 mg a day. Please follow up with ENT as scheduled. Return to the ER for worsening pain, headache, nausea, dizziness or if you have any changes in your symptoms. - Post Discharge Activity Forms/Work/School Notes: Back to Work
--- NOTE | 2019-01-24 22:17 | PDOC ---
*Physical Exam - Vital Signs Last Vital Signs Temp Pulse Resp BP Pulse Ox 98.7 F 93 H 18 130/83 98 01/24/19 18:17 01/24/19 18:17 01/24/19 18:17 01/24/19 18:17 01/24/19 18:17 ED Treatment Course - LABORATORY CBC & Chemistry Diagram: 01/24/19 19:28 01/24/19 19:28 - ADDITIONAL ORDERS Additional order review: Laboratory Results 01/24/19 01/24/19 19:28 18:46 Sodium 140 Potassium 5.2 H Chloride 105 Carbon Dioxide 22 Anion Gap 13 BUN 15 Creatinine 0.8 Creat Clearance w eGFR 83.66 Random Glucose 70 L Calcium 9.0 Total Bilirubin 0.6 AST 33 ALT 18 Alkaline Phosphatase 64 Total Protein 7.7 Albumin 2.6 L Urine Color Yellow Urine Appearance Clear Urine pH 7.0 Ur Specific [place] 1.018 Urine Protein Negative Urine Glucose (UA) Negative Urine Ketones Negative Urine Blood Negative Urine Nitrite Negative Urine Bilirubin Negative Urine Urobilinogen 1.0 Ur Leukocyte Esterase 1+ H Urine WBC (Auto) 6 Urine RBC (Auto) 11.6 Urine Casts (Auto) 1 U Epithel Cells (Auto) 6.1 Urine Bacteria (Auto) 338.6 Urine HCG, Qual Negative 01/24/19 19:28 RBC 4.38 MCV 95.3 MCHC 33.9 RDW 12.6 MPV 10.7 Neutrophils % 71.7 Lymphocytes % 18.2 Monocytes % 8.2 Eosinophils % 1.4 Basophils % 0.5 - Medications Given in the ED: ED Medications Discontinued Medications Generic Name Dose Route Start Last Admin Trade Name Arthurq PRN Reason Stop Dose Admin Ketorolac Tromethamine 30 mg 01/24/19 18:57 01/24/19 19:10 Toradol Injection - IVPUSH 01/24/19 18:58 30 mg ONCE ONE Administration Neomycin/Polymyxin/Hydrocortisone 5 drop 01/24/19 19:17 01/24/19 19:51 Cortisporin Otic Suspenstion - 01/24/19 19:18 5 drop ONCE ONE Administration Medical Decision Making - Medical Decision Making 01/24/19 22:17 Patient seen by the advanced practice provider under my direct supervision. Ancillary testing reviewed as necessary. I agree with plan as outlined by the advanced practice provider. *DC/Admit/Observation/Transfer Diagnosis at time of Disposition: Otitis externa - Referrals Referrals: Jamison Florez [Primary Care Provider] - - Patient Instructions - Post Discharge Activity
[2019-01-24 22:21] VITALS: PULSE 72; TEMP 98
[2019-01-24] MEDS ORDERED: CLINDAMYCIN 600MG PREMIX IVPB 600 MG/50 ML BAG IVPB ONE (22:54)
[2019-01-25] MEDS ORDERED: CLINDAMYCIN 600MG PREMIX IVPB 600 MG/50 ML BAG IVPB ONE (00:05)
[2019-01-25] MEDS ORDERED: traMADol HCL 50 MG TABLET PO ONE (00:41)
[2019-01-25] MEDS ORDERED: traMADol HCL 50 MG TABLET ONE (01:01)
== END 2019-01-25 01:17 | disposition home or self-care (01) ==
LOC: JERFT 18:14 → JER 18:14
PROC: 3E0333Z Introduction of Anti-inflammatory into Peripheral Vein, Percutaneous Approach (ICD-10-PCS; principal; 2019-01-24)
DX: H60.502 Unspecified acute noninfective otitis externa, left ear (principal); H66.005 Acute suppurative otitis media without spontaneous rupture of ear drum, recurrent, left ear
CPT/HCPCS: 36415; 70450-TC; 70480-TC; 80053; 81003; 84703; 85025; 85651; 87070; 87880; 99283-25

== ENCOUNTER 2019-01-26 06:08 | Emergency (ER) | payer SELFPAY ==
[2019-01-26 06:41] VITALS: BP 133/72; PULSE 73; TEMP 98.4; BMI 33.3
[2019-01-26] MEDS ORDERED: AMPICILLIN NA/SULBACTAM NA 3 GM in SODIUM CHLORIDE 100 ML IVPB ONE (07:54)
[2019-01-26] MEDS ORDERED: VANCOMYCIN 1 GM in D5W (PRE-DOCKED) 1,000 MG/250 ML IVPB ONE (07:54)
--- NOTE | 2019-01-26 08:17 | PDOC ---
History of Present Illness - General Chief Complaint: Ear Problem Stated Complaint: EARACHE Time Seen by Provider: 01/26/19 07:26 History Source: Patient Exam Limitations: No Limitations - History of Present Illness Initial Comments: 01/26/19 08:11 33-year-old female with no past medical history presents to ED with worsening left ear pain now radiating to her right ear without fever, chills dizziness or visual changes. Patient also denies any difficult swallowing but states discomfort to the back of her throat. Patient states was seen here 2 days prior given antibiotics along with eardrops and Motrin. Patient states symptoms have worsened now causing inability to hear from her left ear. Patient denies decreased sensation to the left side of her face, dizziness or posterior neck pain. Patient denies smoking history, recent travel, or submersion in water recently. Timing/Duration: getting worse Severity: mild Associated Symptoms: reports: other Past History - Travel Traveled outside of the country in the last 30 days: No Close contact w/someone who was outside of country & ill: No - Past Medical History Allergies/Adverse Reactions: Allergies Allergy/AdvReac Type Severity Reaction Status Date / Time montelukast sodium Allergy Verified 01/24/19 18:20 [[facility] Home Medications: Ambulatory Orders Clindamycin [Cleocin -] 300 mg PO TID #21 capsule 01/25/19 Ibuprofen 600 mg PO Q6H #30 tablet 01/25/19 Neomycin/Polymyxn/Hc [Cortisporin Otic Solution -] 5 drop Q6HPO #1 bottle Asthma: Yes COPD: No - Reproductive History LMP Normal: Yes (#): 4 Para: 1 Cervical CA: No Dysfunctional Uterine Bleeding: No Ectopic : No Endometrial CA: No Polycystic Ovaries: No Therapeutic (s) & number: Yes (1) Tubal Ligation: No Spontaneous : 1 - Immunization History Immunization Up to Date: Yes - Suicide/Smoking/Psychosocial Hx Smoking Status: No Smoking History: Never smoked Have you smoked in the past 12 months: No Number of Cigarettes Smoked Daily: 0 Cigars Per Day: 0 Hx Alcohol Use: No Drug/Substance Use Hx: No Substance Use Type: None Hx Substance Use Treatment: No Patient Lives Alone: No Lives with/in: spouse/SO Review of Systems - Review of Systems Able to Perform ROS?: Yes Is the patient limited Setswana proficient: No Constitutional: No: Symptoms Reported HEENTM: Yes: Symptoms Reported, Ear Pain Respiratory: No: Symptoms reported Cardiac (ROS): No: Symptoms Reported ABD/GI: No: Symptoms Reported : No: Symptoms Reported Musculoskeletal: No: Symptoms Reported Integumentary: Yes: Erythema Neurological: No: Headache, Numbness, Tingling, Dizziness Endocrine: No: Symptoms Reported *Physical Exam - Vital Signs Last Vital Signs Temp Pulse Resp BP Pulse Ox 98.4 F 73 20 133/72 99 01/26/19 06:38 01/26/19 06:38 01/26/19 06:38 01/26/19 06:38 01/26/19 06:38 - Physical Exam General Appearance: Yes: Nourished, Appropriately Dressed. No: Apparent Distress HEENT: positive: EOMI, MICHAEL, Pharynx Normal. negative: TMs Normal (Noted erythematous and edematous tragus and pinna of the left ear unable to visualize TM. Ear canal edematous with no visible excoriation), Pale Conjunctivae Neck: positive: Trachea midline, Normal Thyroid, Supple. negative: Decreased range of motion, Lymphadenopathy (R), Lymphadenopathy (L) Respiratory/Chest: positive: Lungs Clear, Normal Breath Sounds. negative: Respiratory Distress, Accessory Muscle Use Cardiovascular: positive: Regular Rhythm, Regular Rate. negative: Murmur Integumentary: positive: Warm Neurologic: positive: Motor Strength 5/5 (ambulatory) ED Treatment Course - LABORATORY CBC & Chemistry Diagram: 01/26/19 08:47 01/26/19 08:47 - RADIOLOGY Radiology Studies Ordered: Category Date Time Status TEMPORAL BONES CT W/O CONTRAST [CT] Stat CT Scan 01/26/19 07:56 Ordered - Medications Given in the ED: ED Medications Discontinued Medications Generic Name Dose Route Start Last Admin Trade Name Freq PRN Reason Stop Dose Admin Oxycodone/Acetaminophen 1 combo 01/26/19 07:36 01/26/19 08:06 Percocet 5/325 - PO 01/26/19 07:37 1 combo ONCE ONE Administration Medical Decision Making - Medical Decision Making 01/26/19 08:03 Chief complaint: Continual and worsening left ear pain and swelling and decreased hearing now complaining of pain to the right ear. Patient was treated with clindamycin and eardrops secondary to recurrent ear infection. Patient's head CT and temporal CT done 2 days prior when she came to the ER showed left otitis media and externa along with air around the mastoid bone. Exam: Vital stable. Right TM intact, left ear canal edematous unable to visualize left TM. Patient with edematous and erythematous pinna and tragus without tenderness to the mastoid bone temporal artery or left cheek. Plan: Labs, urine repeat temporal bone CT along with vancomycin and Unasyn since patient has not improved on 2 days of clindamycin 01/26/19 13:24 Laboratory Tests 10/25/17 01/26/19 01/26/19 17:05 08:04 08:47 WBC 10.1 H Hgb 14.2 Hct 41.4 Neutrophils % 77.6 Sodium Potassium Chloride Random Glucose AST ALT Albumin Urine HCG, Qual Negative Negative 01/26/19 08:47 WBC Hgb Hct Neutrophils % Sodium 140 Potassium 4.5 Chloride 107 Random Glucose 86 AST 14 L ALT 14 Albumin 3.6 Urine HCG, Qual Pt states relief with percocoet Ct shows to changes when complared to previous CT. Noted continual otitis media /externa with opacification of the mastoid air cells. case discussed with pts ENT, Dr. Ludwig and states pt can go directly to the office where he will do a wash out and manage pt. *DC/Admit/Observation/Transfer Diagnosis at time of Disposition: Otitis media, Otitis externa - Discharge Dispostion Disposition: HOME Condition at time of disposition: Good - Referrals Referrals: Ronal Kahn MD [Staff Physician] - - Patient Instructions Printed Discharge Instructions: DI for Otitis Externa, Middle Ear Infection Additional Instructions: Please go directly to the ENT office upon ED discharge - Post Discharge Activity
[2019-01-26] MEDS ORDERED: VANCOMYCIN 1 GRAM (PRE-DOCKED) 1,000 MG/250 ML BAG IVPB ONE (08:31)
[2019-01-26 08:56] LABS: BASO % 0.4 % (0-2.0); EOS % 1.2 % (0-4.5); HEMATOCRIT 41.4 % (32.4-45.2); HEMOGLOBIN 14.2 GM/dL (10.7-15.3); LYMPH % 14.2 % (8-40); MCH 32.5 pg (25.7-33.7); MCHC 34.3 g/dl (32.0-36.0); MEAN CELL VOLUME 94.8 fl (80-96); MEAN PLT VOLUME 10.7 fl (7.5-11.1); MONO % 6.6 % (3.8-10.2); NEUT % 77.6 % (42.8-82.8); PLATELET COUNT 248 K/MM3 (134-434); RBC 4.37 M/mm3 (3.60-5.2); RDW 12.6 % (11.6-15.6); WHITE BLOOD COUNT 10.1 K/mm3 (4.0-10.0)
[2019-01-26 09:19] LABS: ALBUMIN 3.6 g/dl (3.4-5.0); ALK PHOS 61 U/L (45-117); ANION GAP 5 MMOL/L (8-16); BILIRUBIN,TOTAL 0.7 mg/dL (0.2-1); BLOOD UREA NITROGEN 10 mg/dL (7-18); CALCIUM 9.3 mg/dL (8.5-10.1); CHLORIDE 107 mmol/L (98-107); CO2 28 mmol/L (21-32); CREATININE 0.6 mg/dL (0.55-1.3); GLUCOSE,RANDOM 86 mg/dL (74-106); POTASSIUM 4.5 mmol/L (3.5-5.1); SGOT/AST 14 U/L (15-37); SGPT/ALT 14 U/L (13-61); SODIUM 140 mmol/L (136-145); TOT PROT 6.8 g/dl (6.4-8.2)
== END 2019-01-26 13:52 | disposition home or self-care (01) ==
LOC: JER 06:08
DX: H66.90 Otitis media, unspecified, unspecified ear (principal); H60.90 Unspecified otitis externa, unspecified ear
CPT/HCPCS: 36415; 70480-TC; 80053; 84703; 85025; 87070; 87186; 87205; 99283-25

== ENCOUNTER 2019-10-18 13:50 | Emergency (ER) | payer OTHER ==
[2019-10-18] MEDS ORDERED: IBUPROFEN 600 MG TABLET (FP) PO ONE ×2 (14:08→14:16)
[2019-10-18 14:11] VITALS: BP 136/79; PULSE 108; TEMP 100.9; BMI 34.9
--- NOTE | 2019-10-18 14:14 | PDOC ---
Rapid Medical Evaluation Chief Complaint: Cold Symptoms Time Seen by Provider: 10/18/19 14:07 Medical Evaluation: Allergies Allergy/AdvReac Type Severity Reaction Status Date / Time montelukast sodium Allergy Verified 01/24/19 18:20 [From [facility]] Vital Signs Temp Pulse Resp BP Pulse Ox 100.9 F H 108 H 18 136/79 98 10/18/19 14:08 10/18/19 14:08 10/18/19 14:08 10/18/19 14:08 10/18/19 14:08 10/18/19 14:12 I performed a brief in-person evaluation of this patient. 34-year-old female with history of asthma presenting with one day of fevers/ chills, dry cough, bodyaches. No flu vaccine. Pertinent physical exam findings: Alert, oriented, no distress. Nasal congestion/rhinorrhea. Lungs CTAB. Febrile 100.9, tachycardic 119. I have ordered the following: Pgu Motrin 600mg PO pending above Influenza swab. Patient to proceed to FT for further evaluation. Discharge Disposition - Diagnosis Flu-like symptoms - Referrals - Patient Instructions - Post Discharge Activity
--- NOTE | 2019-10-18 14:35 | PDOC ---
History of Present Illness - General Chief Complaint: Cold Symptoms Stated Complaint: COLD SYMPTOMS Time Seen by Provider: 10/18/19 14:07 History Source: Patient Exam Limitations: No Limitations - History of Present Illness Initial Comments: 10/18/19 14:32 Patient is a 34-year-old female with a history of asthma who presents to the ED with severe body aches and fever that started today. She admits to not having a flu shot this year but not being around anybody who has been ill. She has had a slight cough. She denies any nausea or vomiting. She has not taken anything for her symptoms. She does admit to having loss of appetite. Past History - Past Medical History Allergies/Adverse Reactions: Allergies Allergy/AdvReac Type Severity Reaction Status Date / Time montelukast sodium Allergy Verified 01/24/19 18:20 [From [facility]] Home Medications: Ambulatory Orders Clindamycin [Cleocin -] 300 mg PO TID #21 capsule 01/25/19 Ibuprofen 600 mg PO Q6H #30 tablet 01/25/19 Neomycin/Polymyxn/Hc [Cortisporin Otic Solution -] 5 drop Q6HPO #1 bottle Ibuprofen [Motrin -] 600 mg PO TID PRN #21 tablet 10/18/19 Oseltamivir Phosphate [Tamiflu] 75 mg PO BID #10 capsule 10/18/19 Asthma: Yes COPD: No - Reproductive History (#): 4 Para: 1 Cervical CA: No Dysfunctional Uterine Bleeding: No Ectopic : No Endometrial CA: No Polycystic Ovaries: No Therapeutic (s) & number: Yes (1) Tubal Ligation: No Spontaneous : 1 - Immunization History Immunization Up to Date: Yes - Psycho Social/Smoking Cessation Hx Smoking Status: No Smoking History: Never smoked Have you smoked in the past 12 months: No Number of Cigarettes Smoked Daily: 0 Cigars Per Day: 0 Information on smoking cessation initiated: No Hx Alcohol Use: No Drug/Substance Use Hx: No Substance Use Type: None Hx Substance Use Treatment: No Review of Systems - Review of Systems Comments:: 10/18/19 14:33 - Review of Systems Able to Perform ROS?: Yes Constitutional: No: Night Sweats, Weakness; Positive: Fever, Chills, Loss of Appetite, Malaise HEENTM: No: Eye Pain, Vision changes, Ear Pain, Throat Swelling, Mouth Pain, Difficulty Swallowing, + Throat Pain Respiratory: No: Shortness of Breath, Wheezing, Sputum Production, + Cough Cardiac (ROS): No: Chest Pain, Chest Tightness, Palpitations, Irregular Heart Beat, Edema ABD/GI: No: Nausea, Vomiting, Abdominal Pain, Diarrhea : No Dysuria, No Hematuria, No Frequency, No Urgency Musculoskeletal: No: Back Pain, Joint Pain, Muscle Weakness, Neck Pain, + bodyaches/Muscle Pain Integumentary: No: Lesions, Rash Neurological: No: Headache, Numbness, Tingling, Weakness, Speech Difficulties *Physical Exam - Vital Signs Last Vital Signs Temp Pulse Resp BP Pulse Ox 100.9 F H 108 H 18 136/79 98 10/18/19 14:08 10/18/19 14:08 10/18/19 14:08 10/18/19 14:08 10/18/19 14:08 - Physical Exam 10/18/19 14:34 - Physical Exam General Appearance: Nourished, Appropriately Dressed, Mild Distress secondary to general unwell feeling HEENT: EOMI, Normal Voice, No Pharyngeal Erythema, No Muffled/Hoarse voice, No Tonsillar Exudate, No Tonsillar Erythema, No Nasal Congestion, No Rhinorrhea, Hearing Grossly Normal, TMs Normal, No TM Bulging, No TM Dullness, No TM Erythema Neck: Supple, No Lymphadenopathy (R), No Lymphadenopathy (L), No Rigidity, No Decreased range of motion Respiratory/Chest: Lungs Clear, Normal Breath Sounds. No Respiratory Distress, No Accessory Muscle Use Cardiovascular: Regular Rhythm, Regular Rate, S1, S2 Gastrointestinal/Abdominal: Normal Bowel Sounds, Soft. Non-tender, No Guarding , No Rebound, No Rigidity Musculoskeletal: Normal Inspection. No Decreased Range of Motion Extremity: Normal Capillary Refill, Normal Inspection Integumentary: Normal Color, Dry. No Rash Neurologic: health/safety job titles II-XII NML intact, Fully Oriented, Alert, Normal Mood/Affect, Normal Response ED Treatment Course - ADDITIONAL ORDERS Additional order review: 10/18/19 14:56 Laboratory Tests 10/18/19 14:23 Urine HCG, Qual Negative 10/18/19 15:10 Laboratory Tests 10/18/19 10/18/19 14:23 14:23 Urine HCG, Qual Negative Influenza A (Rapid) Positive A Influenza B (Rapid) Negative - Medications Given in the ED: ED Medications Discontinued Medications Generic Name Dose Route Start Last Admin Trade Name Suzie PRN Reason Stop Dose Admin Ibuprofen 600 mg 10/18/19 14:08 10/18/19 14:28 Motrin - PO 10/18/19 14:09 600 mg ONCE ONE Administration Medical Decision Making - Medical Decision Making 10/18/19 15:10 The patient has been made aware that she is influenza A positive. We will start her on Tamiflu and the prescription has been sent to her pharmacy. She should get plenty of rest and drink plenty of fluids. She should take Tylenol and ibuprofen for her fevers and body aches. She understands and agrees with this treatment plan and she is stable for discharge. Discharge - Discharge Information Problems reviewed: Yes Clinical Impression/Diagnosis: Flu-like symptoms, Influenza A Condition: Stable Disposition: HOME - Additional Discharge Information Prescriptions: Ibuprofen [Motrin -] 600 mg PO TID PRN #21 tablet PRN Reason: Fever Oseltamivir Phosphate [Tamiflu] 75 mg PO BID #10 capsule - Follow up/Referral Referrals: Tashia Juan MD [Primary Care Provider] - - Patient Discharge Instructions Patient Printed Discharge Instructions: DI for Influenza -- Adult Additional Instructions: Get plenty of rest and drink plenty of fluids. Take Tylenol and Motrin for fevers and body aches. Follow-up with your primary doctor within 1 to 2 days for repeat evaluation. - Post Discharge Activity Work/Back to School Note: Back to Work
== END 2019-10-18 15:19 | disposition home or self-care (01) ==
LOC: JERFT 13:50
DX: J11.1 Influenza due to unidentified influenza virus with other respiratory manifestations (principal); Z88.8 Allergy status to other drugs, medicaments and biological substances
CPT/HCPCS: 84703; 87804; 99281-25

== ENCOUNTER 2019-11-15 12:02 | Emergency (ER) | payer OTHER ==
[2019-11-15 12:33] VITALS: TEMP 98.5; BMI 34.8
[2019-11-15] MEDS ORDERED: METOCLOPRAMIDE HCL INJECTION 10 MG/2 ML VIAL IVPB ONE (13:42)
[2019-11-15] MEDS ORDERED: ACETAMINOPHEN 1000 MG/100 ML VIAL (NON FORMULARY) IVPB ONE (13:42)
[2019-11-15] MEDS ORDERED: SODIUM CHLORIDE 1,000 ML IV STA (13:42)
[2019-11-15] MEDS ORDERED: METOCLOPRAMIDE HCL INJECTION 10 MG/2 ML VIAL ONE (13:49)
[2019-11-15] MEDS ORDERED: ACETAMINOPHEN INJECTION 100 ML IVPB ONE (13:49)
--- NOTE | 2019-11-15 13:52 | PDOC ---
History of Present Illness - General Chief Complaint: Pain Stated Complaint: TOTAL BODY PAIN/HEADACHE Time Seen by Provider: 11/15/19 13:28 History Source: Patient Exam Limitations: Clinical Condition - History of Present Illness Initial Comments: 11/15/19 13:48 Patient with history of asthma presented with complaint of 1 day history of worsening headache, cough, whole body aches, weakness and nasal congestion. Denies nausea, vomiting, fever, chills but reports sore throat. Denies diarrhea but report no bowel movement for the past 3 days. Reported history of constipation. Denies recent travel or sick contact. Patient has not taken anything for symptoms. Denies blurry vision or change in vision, neck pain or radiculopathy. Denies any other symptoms Is this a multiple visit Asthma Patient?: No Past History - Past Medical History Allergies/Adverse Reactions: Allergies Allergy/AdvReac Type Severity Reaction Status Date / Time montelukast sodium Allergy Verified 11/15/19 12:26 [From [facility]] Home Medications: Ambulatory Orders Baloxavir Marboxil [Xofluza] 80 mg PO ONCE #2 tablet 11/15/19 Benzonatate [Tessalon Pearls -] 100 mg PO TID PRN #21 capsule 11/15/19 Ipratropium [place] 2 spray NS BID PRN 5 Days #1 spray 11/15/19 Methylprednisolone [Medrol Dose Esvin] 4 mg PO ASDIR #21 tablet 11/15/19 Asthma: Yes COPD: No - Reproductive History (#): 4 Para: 1 Cervical CA: No Dysfunctional Uterine Bleeding: No Ectopic : No Endometrial CA: No Polycystic Ovaries: No Therapeutic (s) & number: Yes (1) Tubal Ligation: No Spontaneous : 1 - Immunization History Immunization Up to Date: Yes - Psycho Social/Smoking Cessation Hx Smoking Status: No Smoking History: Unknown if ever smoked Have you smoked in the past 12 months: No Number of Cigarettes Smoked Daily: 0 Cigars Per Day: 0 Hx Alcohol Use: No Drug/Substance Use Hx: No Substance Use Type: None Hx Substance Use Treatment: No Review of Systems - Review of Systems Able to Perform ROS?: Yes Is the patient limited German proficient: No Constitutional: Yes: Chills, Malaise, Weakness. No: Fever HEENTM: Yes: Symptoms Reported, See HPI, Nose Congestion, Throat Pain. No: Eye Pain, Blurred Vision, Tearing, Recent change in vision, Double Vision, Cataracts , Ear Pain, Ocular Prothesis, Ear Discharge, Nose Pain, Tinnitus, Nose Bleeding , Hearing Loss, Throat Swelling, Mouth Pain, Dental Problems, Difficulty Swallowing, Mouth Swelling, Other Respiratory: Yes: Symptoms reported, See HPI, Cough, Wheezing (intermittent). No: Orthopnea, Shortness of Breath, SOB with Exertion, SOB at Rest, Stridor, Productive cough, Hemoptysis, Other Cardiac (ROS): No: Symptoms Reported, See HPI, Chest Pain, Edema, Irregular Heart Rate, Lightheadedness, Palpitations, Syncope, Chest Tightness, Other ABD/GI: Yes: Symptoms Reported, See HPI, Constipated. No: Blood Streaked Bowels , Diarrhea, Difficulty Swallowing, Nausea, Poor Appetite, Rectal Bleeding, Vomiting, Indigestion, Abdominal cramping Musculoskeletal: No: Symptoms Reported All Other Systems: Reviewed and Negative *Physical Exam - Vital Signs Last Vital Signs Temp Pulse Resp BP Pulse Ox 98.5 F 107 H 22 H 132/96 99 11/15/19 12:30 11/15/19 12:30 11/15/19 12:30 11/15/19 12:30 11/15/19 12:30 - Physical Exam 11/15/19 13:52 GENERAL: Well developed, well nourished. Awake and alert. No acute distress. HEENT: Mild pharyngeal erythema. Normocephalic, atraumatic. PERRLA, EOMI. No conjunctival pallor. Sclera are non-icteric. Moist mucous membranes. NECK: Supple. Full ROM. CARDIOVASCULAR: Regular rate and rhythm. No murmurs, rubs, or gallops. Distal pulses are 2+ and symmetric. PULMONARY: No evidence of respiratory distress. Lungs clear to auscultation bilaterally. No wheezing, rales or rhonchi. ABDOMINAL: Soft. Non-tender. Non-distended. No rebound or guarding. No organomegaly. Normoactive bowel sounds. MUSCULOSKELETAL Normal range of motion at all joints. SKIN: Warm and dry. Normal capillary refill. No rashes. No cyanosis. NEUROLOGICAL: Alert, awake, appropriate. Gait is normal without ataxia. PSYCHIATRIC: Cooperative. Good eye contact. Appropriate mood General Appearance: Yes: Nourished, Appropriately Dressed, Mild Distress ED Treatment Course - LABORATORY CBC & Chemistry Diagram: 11/15/19 14:00 11/15/19 14:00 Medical Decision Making - Medical Decision Making 11/15/19 13:49 Patient with history of asthma presented with complaint of 1 day history of worsening headache, whole body aches, weakness and nasal congestion. Denies nausea, vomiting, fever, chills but reports sore throat. Denies diarrhea but report no bowel movement for the past 3 days. Reported history of constipation. Denies recent travel or sick contact. Patient has not taken anything for symptoms. Denies blurry vision or change in vision, neck pain or radiculopathy. Denies any other symptoms Exam significant for patient in mild discomfort with mild expiratory wheeze with no acute respiratory distress. Patient reportedly had positive flu test a month ago. Symptoms likely viral URI with headache versus less likely strep versus less likely cystitis. CBC, CMP lab ordered to rule out bacteremia. UA and urine culture ordered to rule out UTI. Reglan 10 mg IV and Tylenol 1 g IV ordered for headache. Normal saline 1 L ordered for hydration. Treat based on lab results 11/15/19 15:20 CBC and chemistry lab unremarkable. Urine labs pending. Patient reported mild improvement in headache and weakness after Tylenol and IV hydration. 11/15/19 15:59 UA shows no abnormality. Patient feeling better stable for discharge and will be treated conservatively for viral URI on Tessalon Perles as needed for cough Atrovent nasal spray for nasal congestion and Medrol Esvin for URI advised to increase fluid intake and follow-up with PCP Discharge - Discharge Information Problems reviewed: Yes Clinical Impression/Diagnosis: Flu-like symptoms, Viral syndrome Headache Qualifiers: Headache type: other headache syndrome Qualified Code(s): G44.89 - Other headache syndrome Condition: Stable Disposition: HOME - Admission No - Additional Discharge Information Prescriptions: Baloxavir Marboxil [Xofluza] 80 mg PO ONCE #2 tablet Benzonatate [Tessalon Pearls -] 100 mg PO TID PRN #21 capsule PRN Reason: Cough Ipratropium [place] 2 spray NS BID PRN 5 Days #1 spray PRN Reason: nasal congestion Methylprednisolone [Medrol Dose Esvin] 4 mg PO ASDIR #21 tablet - Follow up/Referral Referrals: Stephane Wagner [Primary Care Provider] - - Patient Discharge Instructions Patient Printed Discharge Instructions: DI for Viral Syndrome Additional Instructions: Your strep was negative. Your blood work was normal. Your symptoms likely caused by viral infection. Take prescribed medication as prescribed for cough and congestion. Take Tylenol as needed for headache. Increase fluid intake. Follow-up with primary care. Come back to the emergency room if worsening headache with nausea and vomiting, dizziness, worsening fevers. - Post Discharge Activity
[2019-11-15 15:00] LABS: BASO % 0.3 % (0-2.0); EOS % 0.6 % (0-4.5); HEMATOCRIT 44.6 % (32.4-45.2); HEMOGLOBIN 15.3 GM/dL (10.7-15.3); LYMPH % 18.4 % (8-40); MCH 31.7 pg (25.7-33.7); MCHC 34.4 g/dl (32.0-36.0); MEAN CELL VOLUME 92.4 fl (80-96); MEAN PLT VOLUME 11.3 fl (7.5-11.1); MONO % 18.3 % (3.8-10.2); NEUT % 62.4 % (42.8-82.8); PLATELET COUNT 230 K/MM3 (134-434); RBC 4.82 M/mm3 (3.60-5.2); RDW 12.4 % (11.6-15.6); WHITE BLOOD COUNT 4.1 K/mm3 (4.0-10.0)
[2019-11-15 15:15] LABS: ALBUMIN 3.8 g/dl (3.4-5.0); BILIRUBIN,TOTAL 0.3 mg/dL (0.2-1); BLOOD UREA NITROGEN 14.2 mg/dL (7-18); CALCIUM 9.3 mg/dL (8.5-10.1); CREATININE 0.7 mg/dL (0.55-1.3); POTASSIUM 3.9 mmol/L (3.5-5.1)
[2019-11-15] MEDS ORDERED: LACTATED RINGERS SOLUTION 1000 ML INFUS.BAG IV ONE (15:30)
[2019-11-15 15:44] LABS: PH,URINE 5.5 (5.0-8.0); URINE APPEARANCE CLEAR; URINE BILIRUBIN NEGATIVE (NEGATIVE); URINE COLOR YELLOW; URINE GLUCOSE (UA) NEGATIVE (NEGATIVE); URINE KETONE TRACE (NEGATIVE); URINE LEUK ESTERASE NEGATIVE (NEGATIVE); URINE NITRITE NEGATIVE (NEGATIVE); URINE PROTEIN NEGATIVE (NEGATIVE); URINE UROBILINOGEN 0.2 mg/dL (0.2-1.0)
[2019-11-15 16:33] VITALS: BP 129/84; PULSE 74
== END 2019-11-15 16:33 | disposition home or self-care (01) ==
LOC: JERFT 12:02 → JER 12:02
PROC: 3E033NZ Introduction of Analgesics, Hypnotics, Sedatives into Peripheral Vein, Percutaneous Approach (ICD-10-PCS; principal; 2019-11-15)
PROC: 3E033GC Introduction of Other Therapeutic Substance into Peripheral Vein, Percutaneous Approach (ICD-10-PCS; 2019-11-15)
DX: J11.1 Influenza due to unidentified influenza virus with other respiratory manifestations (principal); G44.89 Other headache syndrome; B34.9 Viral infection, unspecified
CPT/HCPCS: 36415; 80053; 81003; 84703; 85025; 87070; 87086; 87186; 87880; 99284-25; J0131; J7030

== ENCOUNTER 2020-10-21 06:29 | Emergency (ER) | payer OTHER ==
[2020-10-21 07:02] VITALS: BP 116/89; PULSE 88; TEMP 98.7; BMI 33.3
[2020-10-21] MEDS ORDERED: ACETAMINOPHEN 325 MG TABLET (FP) PO ONE (07:57)
[2020-10-21] MEDS ORDERED: ACETAMINOPHEN 325 MG TABLET (FP) ONE (08:24)
== END 2020-10-21 09:33 | disposition home or self-care (01) ==
LOC: JER 06:29
DX: M25.572 Pain in left ankle and joints of left foot (principal); S93.402A Sprain of unspecified ligament of left ankle, initial encounter
CPT/HCPCS: 73590-TC-LT-FY; 73610-TC-LT-FY; 73630-TC-LT; 99285-25

== ENCOUNTER 2022-05-28 12:14 | Emergency (ER) | payer OTHER ==
[2022-05-28 12:34] VITALS: BP 117/79; PULSE 75; RESP 19; TEMP 98.1; BMI 35.7
[2022-05-28] MEDS ORDERED: DEXAMETHASONE LIQUID 0.5 MG/5 ML PO ONE (14:36)
[2022-05-28] MEDS ORDERED: DEXAMETHASONE SOD PHOSPHATE 10 MG/1 ML VIAL ONE (14:39)
== END 2022-05-28 16:03 | disposition home or self-care (01) ==
LOC: JERFT 12:14
DX: L23.9 Allergic contact dermatitis, unspecified cause (principal)
CPT/HCPCS: 99283-25

== ENCOUNTER 2023-09-09 20:55 | Emergency (ER) | payer OTHER ==
[2023-09-09 21:00] VITALS: BP 125/80; PULSE 91; RESP 18; TEMP 98.3; BMI 32.8
[2023-09-09] MEDS ORDERED: KETOROLAC TROMETHAMINE 30 MG/1 ML VIAL IM ONE (21:38)
[2023-09-09] MEDS ORDERED: LIDOCAINE 5% TOPICAL PATCH TP ONE (21:39)
[2023-09-09] MEDS ORDERED: METHOCARBAMOL 500 MG TABLET PO ONE (21:39)
[2023-09-09] MEDS ORDERED: KETOROLAC TROMETHAMINE 30 MG/1 ML VIAL ONE (21:51)
[2023-09-09] MEDS ORDERED: LIDOCAINE 4% PATCH TP ONE (21:51)
[2023-09-09] MEDS ORDERED: METHOCARBAMOL 500 MG TABLET ONE (21:51)
[2023-09-10] MEDS ORDERED: LIDOCAINE PATCH REMOVAL MC SCH (10:00)
== END 2023-09-09 22:49 | disposition home or self-care (01) ==
LOC: JER 20:55
PROC: 3E0233Z Introduction of Anti-inflammatory into Muscle, Percutaneous Approach (ICD-10-PCS; principal; 2023-09-09)
DX: M54.6 Pain in thoracic spine (principal); M54.50 Low back pain, unspecified
CPT/HCPCS: 99284-25

== ENCOUNTER 2025-01-26 23:38 | Emergency (ER) | payer SELFPAY ==
[2025-01-26 23:48] VITALS: BP 106/74; PULSE 83; RESP 18; TEMP 97.8; BMI 30.7
[2025-01-27] MEDS ORDERED: METHOCARBAMOL 500 MG TABLET ONE (00:52)
[2025-01-27] MEDS ORDERED: ACETAMINOPHEN 325 MG TABLET (FP) ONE (00:52)
[2025-01-27] MEDS ORDERED: LIDOCAINE 5% TOPICAL PATCH ONE (00:53)
[2025-01-27] MEDS: ACETAMINOPHEN 325 MG TABLET (FP) PO ONE (01:04)
[2025-01-27] MEDS: METHOCARBAMOL 500 MG TABLET PO ONE (01:04)
[2025-01-27] MEDS: LIDOCAINE 5% TOPICAL PATCH TP ONE (01:04)
[2025-01-27] MEDS ORDERED: LIDOCAINE PATCH REMOVAL MC SCH (22:00)
== END 2025-01-27 03:44 | disposition home or self-care (01) ==
LOC: JER 23:38
DX: M25.512 Pain in left shoulder (principal); M54.50 Low back pain, unspecified
CPT/HCPCS: 73030-TC-LT-FY; 99283-25